=== PATIENT | female | born 1930 | race Caucasian/White ===

== ENCOUNTER 2016-04-16 09:24 | Emergency (ER) | payer MEDICARE, BC ==
[~2016-04-16] VITALS: Ht 170.2 cm; Wt 77.3 kg
[~2016-04-16 09:24] MED LIST: ATIVAN 0.50.5 MG/TAB PO; CORDARONE200 MG/TAB PO; ELIQUIS 5MG PO; LEVOXYL0.05 MG PO; LEXAPRO 10MG10 MG PO; TOPROL XL 25MG25 MG PO; TRICOR145 MG PO; ULTRAM 50MG TAB50 MG PO
[2016-04-16 09:27] VITALS: TEMP 98.6
[2016-04-16 10:49] LABS: BASO % 0.5 % (0.0-2.0); EOS # 0.1 (0.0-0.7); EOS % 1.2 % (0-4.0); GRAN # 2.5 (1.4-6.5); GRAN % 60.7 % (42.2-75.2); HEMATOCRIT 32.5 % (37.0-47.0); HEMOGLOBIN 10.9 g/dl (12.5-16.0); LYMPH # 0.7 (1.2-3.4); LYMPH % 17.6 % (20.0-51.0); MEAN CELL VOLUME 90 fl (80.0-100.0); MEAN CORPUSCULAR HEMOGLOBIN 30 pg (27.0-31.0); MEAN CORPUSCULAR HGB CONC 34 g/dl (33.0-37.0); MEAN PLATELET VOLUME 8.7 fl (7.4-10.4); MONO # 0.8 (0.1-0.6); PLATELET COUNT 230 K/mm3 (130-400); REDCELL DISTRIBUTION WIDTH-CV 13.3 % (11.5-14.5); WHITE BLOOD COUNT 4.2 K/mm3 (4.8-10.8)
[2016-04-16 11:11] LABS: ADJUSTED CALCIUM 8.9 mg/dL (8.4-10.2); ALANINE AMINOTRANSFERASE 76 U/L (9-52); ALBUMIN 3.8 gm/dL (3.5-5.0); ALKALINE PHOSPHATASE 39 U/L (50-136); ANION GAP 8 mmol/L (7-16); BILIRUBIN,TOTAL 0.5 mg/dL (0.0-1.0); BLOOD UREA NITROGEN 12 mg/dL (7-17); CALCIUM 8.7 mg/dL (8.4-10.2); CARBON DIOXIDE 28 mmol/L (22-30); CHLORIDE 95 mmol/L (98-107); CREATININE, serum 0.91 mg/dL (0.52-1.25); GLUCOSE 98 mg/dL (74-106); POTASSIUM 4.3 mmol/L (3.4-5.0); SODIUM 131 mmol/L (137-145); TOTAL PROTEIN 6.3 gm/dL (6.4-8.2)
[2016-04-16 11:23] LABS: B-TYPE NATRIURETIC PEPTIDE 472 pg/mL (0-450); TROPONIN-I < 0.012 ng/mL (0.000-0.034)
[2016-04-16 12:03] VITALS: BP 128/64; PULSE 56
== END 2016-04-16 12:09 | disposition home or self-care (01) ==
LOC: COL.ER 09:24
PROVIDERS: Emergency Medicine
DX: J20.9 Acute bronchitis, unspecified (principal); I48.91 Unspecified atrial fibrillation; Z79.01 Long term (current) use of anticoagulants

== ENCOUNTER 2016-08-19 03:31 | Observation (INO) | payer MEDICARE, BC ==
[~2016-08-19] VITALS: Ht 167.6 cm; Wt 62.9 kg
[2016-08-19 04:04] VITALS: BP 149/69; PULSE 58
[2016-08-19 04:17] LABS: BASO # 0.1 (0.0-0.2); BASO % 0.7 % (0.0-2.0); EOS % 0.1 % (0-4.0); GRAN # 6.3 (1.4-6.5); GRAN % 77.9 % (42.2-75.2); LYMPH # 0.9 (1.2-3.4); LYMPH % 11.6 % (20.0-51.0); MEAN CELL VOLUME 89 fl (80.0-100.0); MEAN CORPUSCULAR HGB CONC 33 g/dl (33.0-37.0); MEAN PLATELET VOLUME 8.8 fl (7.4-10.4); MONO # 0.7 (0.1-0.6); MONO % 8.7 % (1.7-9.3); PLATELET COUNT 286 K/mm3 (130-400); REDCELL DISTRIBUTION WIDTH-CV 13.6 % (11.5-14.5); WHITE BLOOD COUNT 8.1 K/mm3 (4.8-10.8)
[2016-08-19 04:21] LABS: HEMATOCRIT 32.1 % (37.0-47.0); HEMOGLOBIN 10.7 g/dl (12.5-16.0); MEAN CORPUSCULAR HEMOGLOBIN 30 pg (27.0-31.0)
[2016-08-19 04:26] LABS: INR 1.4 (0.8-3.0); PROTHROMBIN TIME 15.9 SECONDS (9.7-12.8)
[2016-08-19 04:27] LABS: PH 8 (5-8); SQUAMOUS EPITHELIAL None Seen /hpf; URINE APPEARANCE Clear; URINE BACTERIA Rare /hpf; URINE BILIRUBIN Negative (NEGATIVE); URINE BLOOD Negative (NEGATIVE); URINE COLOR Yellow; URINE GLUCOSE Negative (NEGATIVE); URINE KETONE Negative (NEGATIVE); URINE RBC 0-2 /hpf; URINE UROBILINOGEN Negative (NEGATIVE); URINE WBC 0-2 /hpf
[2016-08-19 04:29] LABS: PARTIAL THROMBOPLASTIN TIME 30.8 SECONDS (26.0-37.0)
[2016-08-19 04:34] LABS: ADJUSTED CALCIUM 9.1 mg/dL (8.4-10.2); ALANINE AMINOTRANSFERASE 41 U/L (9-52); ALBUMIN 3.9 gm/dL (3.5-5.0); ALKALINE PHOSPHATASE 33 U/L (50-136); ANION GAP 9 mmol/L (7-16); BILIRUBIN,TOTAL 0.5 mg/dL (0.0-1.0); BLOOD UREA NITROGEN 14 mg/dL (7-17); CARBON DIOXIDE 24 mmol/L (22-30); CHLORIDE 98 mmol/L (98-107); CREATININE, serum 0.86 mg/dL (0.52-1.25); GLUCOSE 116 mg/dL (74-106); LIPASE 96 U/L (23-300); SODIUM 131 mmol/L (137-145); TOTAL PROTEIN 6.5 gm/dL (6.4-8.2)
[2016-08-19 04:46] LABS: TROPONIN-I < 0.012 ng/mL (0.000-0.034)
[2016-08-19 11:33] VITALS: BP 159/76; PULSE 59; TEMP 98
[2016-08-19 15:17] VITALS: BP 145/72; PULSE 65; TEMP 97.5
[2016-08-19 17:07] LABS: C-REACTIVE PROTEIN < 0.5 mg/dL (0.0-0.9)
[2016-08-19 20:03] VITALS: BP 116/47; PULSE 61; TEMP 98.1
[2016-08-20 00:12] VITALS: BP 118/50; PULSE 55; TEMP 98.1
[2016-08-20 04:54] VITALS: BP 129/58; PULSE 56; TEMP 98
[2016-08-20 08:16] VITALS: BP 136/61; PULSE 57; TEMP 98.5
[2016-08-20 09:23] LABS: BASO # 0.1 (0.0-0.2); BASO % 0.7 % (0.0-2.0); EOS # 0.1 (0.0-0.7); GRAN # 5.1 (1.4-6.5); GRAN % 76.5 % (42.2-75.2); LYMPH # 0.9 (1.2-3.4); LYMPH % 13.5 % (20.0-51.0); MEAN CELL VOLUME 92 fl (80.0-100.0); MEAN CORPUSCULAR HGB CONC 32 g/dl (33.0-37.0); MONO # 0.5 (0.1-0.6); MONO % 7.3 % (1.7-9.3); PLATELET COUNT 323 K/mm3 (130-400); RED BLOOD COUNT 3.86 M/mm3 (4.10-5.30); REDCELL DISTRIBUTION WIDTH-CV 14.2 % (11.5-14.5); WHITE BLOOD COUNT 6.7 K/mm3 (4.8-10.8)
[2016-08-20 09:25] LABS: HEMATOCRIT 35.5 % (37.0-47.0); HEMOGLOBIN 11.4 g/dl (12.5-16.0); MEAN CORPUSCULAR HEMOGLOBIN 30 pg (27.0-31.0)
[2016-08-20 09:32] LABS: CREATININE, serum 0.75 mg/dL (0.52-1.25); POTASSIUM 3.5 mmol/L (3.4-5.0)
[2016-08-20 12:00] VITALS: BP 138/55; PULSE 61
[2016-08-20 15:01] VITALS: BP 140/52; PULSE 57; TEMP 97.9
[2016-08-20 20:43] VITALS: BP 139/63; PULSE 64; TEMP 97.5
[2016-08-21 04:02] VITALS: BP 156/59; PULSE 70; TEMP 98.9
[2016-08-21 08:24] VITALS: BP 162/63; PULSE 61; TEMP 98.4
[2016-08-21] MEDS ORDERED: ANTIVERT 12.512.5 MG PO ×2 (11:33→15:41)
[2016-08-21 12:34] VITALS: BP 145/59; PULSE 63; TEMP 97.7
[2016-08-23 13:57] LABS: .ANTICARDIOLIPIN IGG <9.4 GPL (())
[2016-08-23 14:00] LABS: .ANTICARDIOLIPIN IGM <9.4 MPL (())
== END 2016-08-21 16:42 | disposition home or self-care (01) ==
LOC: COL.ER 03:31 → MEDICAL 09:04
PROVIDERS: Emergency Medicine; Physician Assistant; Psychiatry & Neurology Neurology
DX: R42 Dizziness and giddiness (principal); E87.1 Hypo-osmolality and hyponatremia; E78.1 Pure hyperglyceridemia; E03.9 Hypothyroidism, unspecified; I48.91 Unspecified atrial fibrillation; Z79.01 Long term (current) use of anticoagulants; R35.0 Frequency of micturition; D69.2 Other nonthrombocytopenic purpura; G47.33 Obstructive sleep apnea (adult) (pediatric)
CPT/HCPCS: 99232-AI; G0378; J2060; J2405; J2550; J7030; J7040

== ENCOUNTER 2016-10-05 05:55 | Inpatient (IN) | payer MEDICARE, BC ==
[~2016-10-05] VITALS: Ht 165.1 cm; Wt 61.9 kg
[~2016-10-05 05:55] MED LIST changes: +ANTIVERT 12.512.5 MG PO
[2016-10-05 06:48] LABS: ADJUSTED CALCIUM 9.3 mg/dL (8.4-10.2); ALBUMIN 4.6 gm/dL (3.5-5.0); BILIRUBIN,TOTAL 0.5 mg/dL (0.0-1.0); CALCIUM 9.8 mg/dL (8.4-10.2); CREATININE, serum 0.86 mg/dL (0.52-1.25); TOTAL PROTEIN 7.3 gm/dL (6.4-8.2)
[2016-10-05 07:01] LABS: TROPONIN-I 0.23 ng/mL (0.000-0.034)
[2016-10-05 07:08] LABS: AMPHETAMINE URINE NEGATIVE; BARBITURATES URINE NEGATIVE; BENZODIAZEPINES URINE NEGATIVE; BUPRENORPHINE URINE NEGATIVE; METHADONE URINE NEGATIVE; OPIATES URINE NEGATIVE; OXYCODONE URINE NEGATIVE; PHENCYCLIDINE URINE NEGATIVE; PROPOXYPHENE URINE NEGATIVE; THC CANNABINOIDS URINE NEGATIVE
[2016-10-05 07:19] LABS: PH 6 (5-8); SQUAMOUS EPITHELIAL 0-2 /hpf; URINE APPEARANCE Hazy; URINE BACTERIA None Seen /hpf; URINE BILIRUBIN Negative (NEGATIVE); URINE BLOOD Negative (NEGATIVE); URINE COLOR Yellow; URINE GLUCOSE Negative (NEGATIVE); URINE KETONE Negative (NEGATIVE); URINE RBC 0-2 /hpf; URINE UROBILINOGEN Negative (NEGATIVE)
[2016-10-05 07:31] LABS: BASO # 0.1 (0.0-0.2); BASO % 0.6 % (0.0-2.0); GRAN # 9.3 (1.4-6.5); GRAN % 86.7 % (42.2-75.2); LYMPH # 0.6 (1.2-3.4); LYMPH % 5.5 % (20.0-51.0); MEAN CELL VOLUME 89 fl (80.0-100.0); MEAN CORPUSCULAR HGB CONC 33 g/dl (33.0-37.0); MEAN PLATELET VOLUME 8.9 fl (7.4-10.4); MONO # 0.7 (0.1-0.6); MONO % 6.4 % (1.7-9.3); PLATELET COUNT 312 K/mm3 (130-400); RED BLOOD COUNT 3.82 M/mm3 (4.10-5.30); REDCELL DISTRIBUTION WIDTH-CV 13.4 % (11.5-14.5); WHITE BLOOD COUNT 10.7 K/mm3 (4.8-10.8)
[2016-10-05 07:37] LABS: HEMATOCRIT 33.9 % (37.0-47.0); HEMOGLOBIN 11.3 g/dl (12.5-16.0); MEAN CORPUSCULAR HEMOGLOBIN 30 pg (27.0-31.0)
[2016-10-05 09:24] VITALS: BP 149/67; PULSE 75; TEMP 98.7
[2016-10-05 13:54] VITALS: BP 137/57; PULSE 71; TEMP 97.4
[2016-10-05 16:50] VITALS: BP 105/42; PULSE 60; TEMP 98.8
[2016-10-05 19:28] VITALS: BP 125/59; PULSE 65; TEMP 98.5
[2016-10-05 23:08] VITALS: BP 123/56; PULSE 57; TEMP 98.7
[2016-10-06 02:51] VITALS: BP 123/57; PULSE 56; TEMP 98.3
[2016-10-06 07:37] VITALS: BP 124/52; PULSE 53; TEMP 97.8
[2016-10-06 08:25] LABS: BASO # 0.1 (0.0-0.2); EOS # 0.1 (0.0-0.7); EOS % 1.5 % (0-4.0); GRAN # 5.2 (1.4-6.5); GRAN % 70.2 % (42.2-75.2); LYMPH # 1.3 (1.2-3.4); LYMPH % 17.4 % (20.0-51.0); MEAN CELL VOLUME 91 fl (80.0-100.0); MEAN CORPUSCULAR HGB CONC 33 g/dl (33.0-37.0); MEAN PLATELET VOLUME 9.1 fl (7.4-10.4); MONO # 0.7 (0.1-0.6); MONO % 9.1 % (1.7-9.3); PLATELET COUNT 299 K/mm3 (130-400); RED BLOOD COUNT 3.61 M/mm3 (4.10-5.30); REDCELL DISTRIBUTION WIDTH-CV 13.5 % (11.5-14.5); WHITE BLOOD COUNT 7.4 K/mm3 (4.8-10.8)
[2016-10-06 08:34] LABS: HEMATOCRIT 32.8 % (37.0-47.0); HEMOGLOBIN 10.9 g/dl (12.5-16.0); MEAN CORPUSCULAR HEMOGLOBIN 30 pg (27.0-31.0)
[2016-10-06 08:37] LABS: CALCIUM 8.9 mg/dL (8.4-10.2); CREATININE, serum 0.79 mg/dL (0.52-1.25); POTASSIUM 3.7 mmol/L (3.4-5.0)
[2016-10-06 12:51] VITALS: BP 114/49; PULSE 55; TEMP 98.4
[2016-10-06 17:58] VITALS: BP 113/55; PULSE 52; TEMP 98
[2016-10-06 21:25] VITALS: BP 103/46; PULSE 52; TEMP 98.7
[2016-10-07] VITALS (10 sets, daily range): BP systolic 109–141; BP diastolic 47–59; PULSE 50–67; TEMP 97.5–98
[2016-10-07] MEDS ORDERED: CEFTIN 250250 MG/TAB PO (13:30)
[2016-10-07] MEDS ORDERED: CORDARONE200 MG/TAB PO (13:31)
[2016-10-07] MEDS ORDERED: ASPIRIN E.C. 8181 MG PO (13:32)
[2016-10-07] MEDS ORDERED: TOPROL XL 25MG25 MG PO (13:32)
== END 2016-10-07 15:30 | disposition home or self-care (01) | DRG 885 ==
LOC: COL.ER 05:55 → MEDICAL 07:52
PROVIDERS: Emergency Medicine; Nurse Practitioner Family
DX: F22 Delusional disorders (principal); I21.4 Non-ST elevation (NSTEMI) myocardial infarction; F05 Delirium due to known physiological condition; N39.0 Urinary tract infection, site not specified; E44.0 Moderate protein-calorie malnutrition; I48.0 Paroxysmal atrial fibrillation; G60.9 Hereditary and idiopathic neuropathy, unspecified; Z79.01 Long term (current) use of anticoagulants; B96.20 Unspecified Escherichia coli [E. coli] as the cause of diseases classified elsewhere; I10 Essential (primary) hypertension
CPT/HCPCS: 90791-AI; 99223-AI; 99232-AI; 99239; A9502; J0696; J2785

== ENCOUNTER → 2016-10-11 | Outpatient (CLI) | payer MEDICARE, BC ==
[~2016-10-11] MED LIST changes: +ASPIRIN E.C. 8181 MG PO; +CEFTIN 250250 MG/TAB PO
== END ==
LOC: MC.RAD 10:51
DX: Z12.31 Encounter for screening mammogram for malignant neoplasm of breast (principal)

== ENCOUNTER → 2016-10-14 | Outpatient (CLI) | payer MEDICARE, BC ==
[~2016-10-14] VITALS: Ht 165.1 cm; Wt 65.0 kg
[2016-10-14 14:48] VITALS: BP 125/64; PULSE 54; TEMP 97.1
== END ==
LOC: EUO 13:00
DX: N39.0 Urinary tract infection, site not specified (principal); J84.10 Pulmonary fibrosis, unspecified; Z95.828 Presence of other vascular implants and grafts
CPT/HCPCS: C1751; J0692; J1644

== ENCOUNTER → 2016-11-11 | Outpatient (REF) | LOC: ZAIV 11-07 06:10 | DX: Z02.89 Encounter for other administrative examinations (principal) ==

== ENCOUNTER → 2017-10-24 | Outpatient (CLI) | payer MEDICARE, BC | LOC: COL.RAD 14:50 | DX: N26.1 Atrophy of kidney (terminal) (principal); N39.0 Urinary tract infection, site not specified ==

== ENCOUNTER → 2017-10-31 | Outpatient (CLI) | payer MEDICARE, BC | LOC: MC.RAD 10:47 | DX: Z12.31 Encounter for screening mammogram for malignant neoplasm of breast (principal) ==

== ENCOUNTER 2018-08-15 06:13 | Inpatient (IN) | payer MEDICARE, BC ==
[~2018-08-15] VITALS: Ht 165.1 cm; Wt 79.5 kg
[2018-08-15 06:46] LABS: HEMOGLOBIN 10.5 g/dl (12.5-16.0); MEAN CELL VOLUME 90 fl (80.0-100.0); MEAN CORPUSCULAR HEMOGLOBIN 30 pg (27.0-31.0); MEAN CORPUSCULAR HGB CONC 33 g/dl (33.0-37.0); MEAN PLATELET VOLUME 9.1 fl (7.4-10.4); PLATELET COUNT 296 K/mm3 (130-400); RED BLOOD COUNT 3.52 M/mm3 (4.10-5.30); REDCELL DISTRIBUTION WIDTH-CV 13.8 % (11.5-14.5)
[2018-08-15 06:47] LABS: COLLECTION METHOD CLEAN CATCH
[2018-08-15 06:47] LABS: HEMATOCRIT 31.5 % (37.0-47.0); INR 1.9 (0.8-3.0); PROTHROMBIN TIME 22.5 SECONDS (9.7-12.8)
[2018-08-15 06:53] LABS: ALANINE AMINOTRANSFERASE 31 U/L (9-52); ALBUMIN 3.8 gm/dL (3.5-5.0); ALKALINE PHOSPHATASE 54 U/L (50-136); ANION GAP 12 mmol/L (7-16); AST,SGOT 47 U/L (15-37); BILIRUBIN,TOTAL 0.5 mg/dL (0.0-1.0); BLOOD UREA NITROGEN 20 mg/dL (7-17); CALCIUM 8.6 mg/dL (8.4-10.2); CARBON DIOXIDE 22 mmol/L (22-30); CHLORIDE 98 mmol/L (98-107); CREATININE, serum 0.87 (0.52-1.25); GLUCOSE 112 mg/dL (74-106); POTASSIUM 3.8 mmol/L (3.4-5.0); SODIUM 132 mmol/L (137-145); TOTAL PROTEIN 7.1 gm/dL (6.4-8.2)
[2018-08-15 06:55] LABS: PH 7 (5-8); SQUAMOUS EPITHELIAL 0-2 /hpf; URINE APPEARANCE Clear; URINE BACTERIA Rare /hpf; URINE BILIRUBIN Negative (NEGATIVE); URINE BLOOD Negative (NEGATIVE); URINE COLOR Yellow; URINE GLUCOSE Negative (NEGATIVE); URINE KETONE Trace (NEGATIVE); URINE LEUKOCYTE ESTERASE Negative (NEGATIVE); URINE NITRATE Positive (NEGATIVE); URINE PROTEIN(semi-quant) Negative (NEGATIVE); URINE RBC 0-2 /hpf; URINE UROBILINOGEN Negative (NEGATIVE)
[2018-08-15 07:10] LABS: TROPONIN-I < 0.012 ng/mL (0.000-0.035)
[2018-08-15 07:14] LABS: BAND 3 % (0-10); EOSINOPHIL 2 % (0-4); LYMPHOCYTE 12 % (20.0-51.0); NEUTROPHILS 72 % (42.0-75.2)
[2018-08-15 07:16] LABS: PLATELET ESTIMATE NORMAL (NORMAL)
[2018-08-15] MEDS ORDERED: SYNTHROID0.1 MG/TAB PO (09:28)
--- NOTE | 2018-08-15 10:30 | NUR ---
Pt on floor from ED. Pt was wanting to stay on bedpan, put an external catheter on. Pt in new gown, oriented to room. C/O pain to her abdomen 09/26. Will follow up with doctor. Denies any other needs. Aid in room.
[2018-08-15 10:45] VITALS: BP 148/58; PULSE 72; TEMP 98.5
--- NOTE | 2018-08-15 11:40 | NUR ---
Completed assessment. Pt is alert and orientedX4, does have random speech occasionally, with random thoughts. C/O of abdomen pain from her UTI. Some bilateral lower extremity pitting edema, +2. Pt usually utilizes a walker at home. Denies being able to get out of bed. Clear yellow urine in suction container. Pt c/o some shortness of breath, breathing even and unlabored, breath sounds clear. Med rec and allergies gone over. Denies any needs. Call light in reach.
--- NOTE | 2018-08-15 12:45 | NUR ---
Plan: TO return home with homehealth care or SNF-[facility]. Assess: RICK met with patient and Son Ankit Wilkerson [phone] in room about plan of care. Patient reports that she has had caregivers in the past for home health and her is at [facility]. Patient verbalize choice. No form signed yet. Patient reports that she uses a walker for mobility and is not opposed to the skilled care. Patient indicated that she no longer drive. PCP is reported as Dr. Junior Rubio, RX obtained from [facility]. Patient reports that she was to have a DR-nicolasa on August [address] Pa for uriology due to UTI being unresolved. DPOA is Karlos Preciado. Action: SW will follow patient's care to facilitate services for DC. RICK educated on the SNF's in the area. Patient reports [facility] is the only SNF she is willing to go to. SW faxed referral preliminarily. Patient resides alone and has a son that is local. Awaiting, PT/OT and PA recommendations.
[2018-08-15 15:36] VITALS: BP 136/50; PULSE 674; TEMP 99.8
--- NOTE | 2018-08-15 16:18 | NUR ---
Pt lying in bed, breathing even and unlabored. Denies any shortness of breath currently. C/O pain to abdomen 05/27, when pressure is applied. Will contiue to monitor. Call light in reach.
--- NOTE | 2018-08-15 18:34 | NUR ---
Pt in bed, denies any shortness of breath or pain at this time. Cannister emptied and external catheter reapplied. Denies any other needs at this time, ordering dinner now.
--- NOTE | 2018-08-15 18:42 | NUR ---
pt lying in bed, eyes closed, breathing even and unlabored. Report given to Nancy HAYNES.
[2018-08-15 19:13] VITALS: BP 134/53; PULSE 68; TEMP 98.8
--- NOTE | 2018-08-15 19:38 | NUR ---
Pt resting with HOB elevated. Family at bedside. No distress noted. Pt denies pain. Respirations even and unlabored. Lungs clear, dminished in bases. BS+. Abdomen soft, nontender. Pt voiding clear, mack urine via external catheter. Catheter placement confirmed. Pt A&O without neuro deficits. Pt denies needs. Will continue to monitor.
--- NOTE | 2018-08-15 23:00 | NUR ---
Pt sleeping. No distress noted. Will continue to monitor.
[2018-08-16 00:38] VITALS: BP 140/52; PULSE 60; TEMP 98.4
[2018-08-16 04:52] VITALS: BP 135/55; PULSE 59; TEMP 97.9
--- NOTE | 2018-08-16 06:10 | NUR ---
Pt sleeping this AM. Reports she sleep better last night. External catheter exchanged and pericare preformed. Pt denies needs.
[2018-08-16 07:15] LABS: BASO # 0.1 (0.0-0.2); BASO % 0.6 % (0.0-2.0); EOS # 0.1 (0.0-0.7); EOS % 1.8 % (0-4.0); GRAN # 5.6 (1.4-6.5); GRAN % 72.5 % (42.2-75.2); HEMOGLOBIN 10.8 g/dl (12.5-16.0); LYMPH % 12.4 % (20.0-51.0); MEAN CELL VOLUME 90 fl (80.0-100.0); MEAN CORPUSCULAR HEMOGLOBIN 29 pg (27.0-31.0); MEAN CORPUSCULAR HGB CONC 32 g/dl (33.0-37.0); MEAN PLATELET VOLUME 8.9 fl (7.4-10.4); MONO # 0.9 (0.1-0.6); MONO % 11.1 % (1.7-9.3); PLATELET COUNT 300 K/mm3 (130-400); RED BLOOD COUNT 3.72 M/mm3 (4.10-5.30); REDCELL DISTRIBUTION WIDTH-CV 13.9 % (11.5-14.5)
[2018-08-16 07:21] LABS: HEMATOCRIT 33.5 % (37.0-47.0)
[2018-08-16 07:30] LABS: CALCIUM 8.4 mg/dL (8.4-10.2); CREATININE, serum 0.71 (0.52-1.25); MAGNESIUM 2.1 mg/dL (1.6-2.3); POTASSIUM 3.7 mmol/L (3.4-5.0)
[2018-08-16 07:56] LABS: TSH w REFLEX 4.98 uIU/mL (0.465-4.680)
[2018-08-16 08:17] VITALS: BP 141/55; PULSE 60; TEMP 98.2
--- NOTE | 2018-08-16 09:45 | NUR ---
Pt assessment complete. Pt is A/O x3. Her breathing is even and unlabored on RA. Pt denies SOB. No pain at this time, pain to touch noticed to BLE. Pt states she was supposed to start Lasix. External catheter in place to constant suction. Encouraged patient to ambulate with walker today to keep up strength, pt agreed. No needs at this time. Call light within reach. Will continue to monitor.
--- NOTE | 2018-08-16 11:00 | NUR ---
Spoke with patient to confirm plan. Patient reports that she plans to return to home with home health care. SW will fax DC order and BONNY for patient with current HHS.
[2018-08-16 12:26] VITALS: BP 125/47; PULSE 59; TEMP 97.9
--- NOTE | 2018-08-16 13:37 | NUR ---
Met with Mrs Wilkerson about home health care. Caregivers reports that they do not have her as a patient. Mrs. Wilkerson states that she can not remember what the company it is and asked me to call Baldemar at [facility] who set the home health care up. SW called and left message. No answer, SW called son to verify and son stated he does not know either and will have to wait for [facility]. Please send BONNY to the home healthcare as soon as we know who it is.
[2018-08-16 16:08] VITALS: BP 117/46; PULSE 60; TEMP 98.1
--- NOTE | 2018-08-16 18:50 | NUR ---
Pt had uneventful day. She denied any pain or concerns. External catheter discontinued, pt up to the cammode to urinate. Pt sitting up in chair at this time. Call light within reach. Will continue to monitor.
[2018-08-16 19:43] VITALS: BP 136/79; PULSE 60; TEMP 98.3
--- NOTE | 2018-08-16 19:51 | NUR ---
PT WAS IN RECLINER BUT NOW IN BED WITH HOB ELEVATED TO 45 DEGREE ANGLE. DENIES PAIN OR DISCOMFORT AND NO NEEDS AT THIS TIME. CALL LIGHT WITHIN REACH.
[2018-08-17] VITALS (7 sets, daily range): BP systolic 133–143; BP diastolic 49–70; PULSE 54–65; TEMP 97.6–98.7
--- NOTE | 2018-08-17 00:22 | NUR ---
PT SLEEPING/RESTING AT THIS TIME. PT WANTED EXTERNAL CATHETER FOR BED. PT WAS EXPLAINED THAT THE ORDER WAS DISCONTINUED AND IF SHE NEEDS TO GET UP TO THE BATHROOM, WE WILL ASSIST HER. NO S/S OF PAIN OR DISCOMFORT NOTED CALL LIGHT WITHIN REACH.
[2018-08-17 06:00] LABS: HEMOGLOBIN 10.4 g/dl (12.5-16.0); MEAN CELL VOLUME 90 fl (80.0-100.0); MEAN CORPUSCULAR HEMOGLOBIN 29 pg (27.0-31.0); MEAN CORPUSCULAR HGB CONC 32 g/dl (33.0-37.0); MEAN PLATELET VOLUME 8.9 fl (7.4-10.4); PLATELET COUNT 311 K/mm3 (130-400); RED BLOOD COUNT 3.59 M/mm3 (4.10-5.30); REDCELL DISTRIBUTION WIDTH-CV 13.8 % (11.5-14.5)
[2018-08-17 06:06] LABS: CALCIUM 8.5 mg/dL (8.4-10.2); CREATININE, serum 0.71 (0.52-1.25); POTASSIUM 3.9 mmol/L (3.4-5.0)
[2018-08-17 06:10] LABS: HEMATOCRIT 32.2 % (37.0-47.0)
[2018-08-17 07:15] LABS: BASOPHIL 2 % (0-2); LYMPHOCYTE 17 % (20.0-51.0); NEUTROPHILS 74 % (42.0-75.2); PLATELET ESTIMATE NORMAL (NORMAL)
--- NOTE | 2018-08-17 08:23 | NUR ---
Patient in room in bed at start of shift. A&Ox3. Has complaints of pain/tenderness in bilateral lower extremities when touched. Assessment complete. Morning medications given. No further needs expressed at this time. Will continue to monitor.
--- NOTE | 2018-08-17 11:47 | NUR ---
First visit from the medical administrative. No needs right now.
--- NOTE | 2018-08-17 17:40 | NUR ---
Home health is being recommended for the patient. RICK provided a Medicare.gov list of agencies that serve the [facility]. The pt would like to contact her PCP to ask about a previous agency she used. RICK will continue follow.
--- NOTE | 2018-08-17 18:03 | NUR ---
Patient had uneventful shift. Sleeping throughout and awake for meals. A&Ox3. VSS. No further needs identified. Will continue to monitor.
--- NOTE | 2018-08-17 20:49 | NUR ---
PT IN BED WITH HOB AT 45 DEGREE ANGLE. PT DOES NOT FOLLOW DIRECTIONS WELL. ASKED PT TO BREATH IN AND OUT AND PT HELD HER BREATH. ALSO, TO POINT TOES UPWARD, BUT SHE LIFTED LEGS AND THEN BENT THEM. PT DENIES PAIN OR DISCOMFORT ONLY WHEN YOU TOUCH LLE. PT ADVISED OF NEW MEDICATION GIVEN. PT HAS NO FURTHER NEEDS CALL LIGHT WITHIN REACH.
--- NOTE | 2018-08-18 01:47 | NUR ---
UNEVENTFUL NIGHT, PT SLEEPING/RESTING WITH NO S/S OF PAIN OR DISCOMFORT NOTED.
[2018-08-18 04:00] VITALS: BP 141/51; PULSE 58; TEMP 97.7
--- NOTE | 2018-08-18 05:44 | NUR ---
UNEVENTFUL NIGHT. PT ASSISTED TO BATHROOM AND BACK A FEW TIMES DURING THE NIGHT, BUT GAIT STEADY USING WALKER FOR AMBULATION. NO FURTHER NEEDS CALL LIGHT WITHIN REACH AND BED ALARM ON.
[2018-08-18 06:05] LABS: HEMOGLOBIN 11.4 g/dl (12.5-16.0); MEAN CELL VOLUME 90 fl (80.0-100.0); MEAN CORPUSCULAR HEMOGLOBIN 30 pg (27.0-31.0); MEAN CORPUSCULAR HGB CONC 33 g/dl (33.0-37.0); PLATELET COUNT 344 K/mm3 (130-400); RED BLOOD COUNT 3.83 M/mm3 (4.10-5.30); REDCELL DISTRIBUTION WIDTH-CV 14.1 % (11.5-14.5)
[2018-08-18 06:20] LABS: CALCIUM 8.9 mg/dL (8.4-10.2); CREATININE, serum 0.72 (0.52-1.25); HEMATOCRIT 34.4 % (37.0-47.0); POTASSIUM 3.8 mmol/L (3.4-5.0)
[2018-08-18 06:51] VITALS: BP 135/50; PULSE 65; TEMP 98.5
[2018-08-18 07:23] LABS: EOSINOPHIL 1 % (0-4); LYMPHOCYTE 6 % (20.0-51.0); NEUTROPHILS 83 % (42.0-75.2); PLATELET ESTIMATE NORMAL (NORMAL)
--- NOTE | 2018-08-18 08:43 | NUR ---
Patient sitting in bed at start of shift. A&Ox3. Denies pain. Morning medication given. No other needs expressed at this time. Will continue to monitor.
[2018-08-18] MEDS ORDERED: CEFTIN500 MG PO (08:54)
[2018-08-18] MEDS ORDERED: NEURONTIN100 MG/CAP PO (08:55)
--- NOTE | 2018-08-18 09:11 | NUR ---
RICK met with the patient to follow up on home health preference. The patient reports that she had [facility] in the past and she chose [facility] again. RICK then contacted and faxed a referral to Payton at [facility]. SW awaiting their screen.
--- NOTE | 2018-08-18 09:54 | NUR ---
Pt has been up to bathroom with diarrhea several times this am. [place] mid level updated and order for CDiff placed. Contact precautions put in place.
--- NOTE | 2018-08-18 10:09 | NUR ---
Discharge orders received. Education and follow-up appointments discussed along with new medications. Patient verbalized understanding.
--- NOTE | 2018-08-18 11:24 | NUR ---
Patient departs facility escorted by MAPLE SUGAR MAKER.
--- NOTE | 2018-08-18 13:56 | NUR ---
Payton, at [facility], reports that they can accept the patient for services. The patient is to discharge back home today, 08/18, with home health services for usp/PT/OT through [facility]. SW presented and explained the IM form to the patient. The patient verbalized understanding, signed, and she was provided a copy. No additional needs at this time.
== END 2018-08-18 11:26 | disposition home or self-care (01) | DRG 70 ==
LOC: COL.ER 06:13 → MEDICAL 09:14
PROVIDERS: Emergency Medicine; Physician Assistant; ADMIT Hospitalist
DX: G93.41 Metabolic encephalopathy (principal); J18.9 Pneumonia, unspecified organism; N39.0 Urinary tract infection, site not specified; Z87.440 Personal history of urinary (tract) infections; I48.91 Unspecified atrial fibrillation; Z79.01 Long term (current) use of anticoagulants; E78.1 Pure hyperglyceridemia; E03.9 Hypothyroidism, unspecified; F03.90 Unspecified dementia, unspecified severity, without behavioral disturbance, psychotic disturbance, mood disturbance, and anxiety; H91.8X9 Other specified hearing loss, unspecified ear; R42 Dizziness and giddiness; G47.33 Obstructive sleep apnea (adult) (pediatric); F41.9 Anxiety disorder, unspecified; Z91.81 History of falling; G60.8 Other hereditary and idiopathic neuropathies; M51.36 Other intervertebral disc degeneration, lumbar region; Z79.82 Long term (current) use of aspirin; Z79.890 Hormone replacement therapy; Z88.1 Allergy status to other antibiotic agents; Z88.2 Allergy status to sulfonamides; Z88.8 Allergy status to other drugs, medicaments and biological substances; M79.605 Pain in left leg; M79.604 Pain in right leg; I83.93 Asymptomatic varicose veins of bilateral lower extremities; Z66 Do not resuscitate; R53.81 Other malaise
CPT/HCPCS: OP; 99222-AI; 99232-AI; 99239; A4216; J0696; Q9967

== ENCOUNTER 2018-08-22 14:28 | Emergency (ER) | payer MEDICARE, BC ==
[~2018-08-22 14:28] MED LIST changes: +CEFTIN500 MG PO; +NEURONTIN100 MG/CAP PO; +SYNTHROID0.1 MG/TAB PO
[2018-08-22 14:36] VITALS: TEMP 97.5
[2018-08-22] MEDS ORDERED: NORCO 325 MG-51 TAB PO (18:02)
[2018-08-22 18:05] VITALS: PULSE 62
[2018-08-22 18:10] VITALS: BP 154/67
== END 2018-08-22 18:10 ==
LOC: COL.ER 14:28
DX: S32.049A Unspecified fracture of fourth lumbar vertebra, initial encounter for closed fracture (principal); M54.16 Radiculopathy, lumbar region; I48.91 Unspecified atrial fibrillation; E03.9 Hypothyroidism, unspecified; E78.5 Hyperlipidemia, unspecified; G62.9 Polyneuropathy, unspecified; F41.9 Anxiety disorder, unspecified; G47.30 Sleep apnea, unspecified; W18.30XA Fall on same level, unspecified, initial encounter

== ENCOUNTER → 2018-09-09 | Outpatient (CLI) | payer MEDICARE, BC ==
[~2018-09-09] MED LIST changes: +AMITIZA 8MCG8 MCG PO; +DULCOLAX S10 MG/SUPP RC; +FLEET MINE1 BOT/133 RC; +LASIX 20MG TABL20 MG PO; +MAGCITRATE PO; +MILK OF MA400 MG/52; +NORCO 325 MG-51 TAB PO; +PROBIOTIC FORMU1 CAP PO; +SENOKOT8.6 MG PO; +TYLENOL 500MG500 MG PO; +ULTRAM ER100 MG PO
== END ==
LOC: COL.RAD 14:04
DX: M48.56XA Collapsed vertebra, not elsewhere classified, lumbar region, initial encounter for fracture (principal)

== ENCOUNTER 2018-09-11 12:57 | Observation (INO) | payer MEDICARE, BC ==
[~2018-09-11] VITALS: Ht 167.6 cm; Wt 80.9 kg
[~2018-09-11 12:57] MED LIST changes: -AMITIZA 8MCG8 MCG PO; -DULCOLAX S10 MG/SUPP RC; -FLEET MINE1 BOT/133 RC; -LASIX 20MG TABL20 MG PO; -MAGCITRATE PO; -MILK OF MA400 MG/52; -PROBIOTIC FORMU1 CAP PO; -SENOKOT8.6 MG PO; -TYLENOL 500MG500 MG PO; -ULTRAM ER100 MG PO
[2018-09-11 13:44] LABS: BASO % 0.3 % (0.0-2.0); EOS % 0.2 % (0-4.0); GRAN # 10.9 (1.4-6.5); GRAN % 81.9 % (42.2-75.2); LYMPH # 1.3 (1.2-3.4); LYMPH % 9.9 % (20.0-51.0); MEAN CELL VOLUME 89 fl (80.0-100.0); MEAN CORPUSCULAR HEMOGLOBIN 29 pg (27.0-31.0); MEAN CORPUSCULAR HGB CONC 33 g/dl (33.0-37.0); MEAN PLATELET VOLUME 8.8 fl (7.4-10.4); MONO # 0.9 (0.1-0.6); MONO % 6.9 % (1.7-9.3); PLATELET COUNT 299 K/mm3 (130-400); RED BLOOD COUNT 4.08 M/mm3 (4.10-5.30); REDCELL DISTRIBUTION WIDTH-CV 14.6 % (11.5-14.5)
[2018-09-11 13:45] LABS: HEMATOCRIT 36.3 % (37.0-47.0)
[2018-09-11 13:57] LABS: ALBUMIN 3.8 gm/dL (3.5-5.0); BILIRUBIN,TOTAL 0.6 mg/dL (0.0-1.0); CALCIUM 8.6 mg/dL (8.4-10.2); CREATININE, serum 0.82 (0.52-1.25); POTASSIUM 3.6 mmol/L (3.4-5.0); TOTAL PROTEIN 6.8 gm/dL (6.4-8.2)
[2018-09-11 13:58] LABS: C-REACTIVE PROTEIN 0.5 mg/dL (0.0-0.9)
[2018-09-11 14:42] LABS: COLLECTION METHOD CLEAN CATCH
[2018-09-11 14:50] LABS: MUCOUS Present /lpf; PH 5 (5-8); URINE APPEARANCE Clear; URINE BACTERIA Rare /hpf; URINE BILIRUBIN Negative (NEGATIVE); URINE BLOOD Negative (NEGATIVE); URINE COLOR Amber; URINE GLUCOSE Negative (NEGATIVE); URINE KETONE Trace (NEGATIVE); URINE LEUKOCYTE ESTERASE Negative (NEGATIVE); URINE NITRATE Negative (NEGATIVE); URINE PROTEIN(semi-quant) Negative (NEGATIVE); URINE UROBILINOGEN >=4.0 mg/dL (NEGATIVE)
[2018-09-11] MEDS ORDERED: FLEET MINE1 BOT/133 RC ×2 (16:12→22:50)
[2018-09-11] MEDS ORDERED: LASIX 20MG TABL20 MG PO (16:13)
[2018-09-11] MEDS ORDERED: PROBIOTIC FORMU1 CAP PO ×2 (16:14→22:53)
[2018-09-11] MEDS ORDERED: SYNTHROID0.1 MG/TAB PO (16:15)
[2018-09-11] MEDS ORDERED: AMITIZA 8MCG8 MCG PO (16:17)
[2018-09-11] MEDS ORDERED: SENOKOT8.6 MG PO (16:19)
[2018-09-11] MEDS ORDERED: ULTRAM ER100 MG PO (16:21)
[2018-09-11] MEDS ORDERED: TYLENOL 500MG500 MG PO (16:22)
[2018-09-11] MEDS ORDERED: MAGCITRATE PO (16:23)
[2018-09-11 17:12] VITALS: BP 152/64; PULSE 60; TEMP 97.6
--- NOTE | 2018-09-11 19:27 | NUR ---
Pt up to room 306 about 1630. Pt admission and med rec completed. Pt is A&O, on room air. Denies chest pain, dizziness. States she has some nausea but no vomiting here. Per pt she vomited some of her morning meds this morning. Pt c/o abdominal pain on left side, tender to touch. Tolerating some clear liquids. Pt stated she had not had a BM in weeks, per pt and nurse giving report she had a BM right before she came up to floor. Per pt her stool was mostly solid, "average". BLE pain/tenderness to touch. LR in LWR started at 125 ml/hr. No other needs at this time. Call light within reach. Report given to IVY Pak.
[2018-09-11 20:32] VITALS: BP 150/63; PULSE 63; TEMP 98.6
--- NOTE | 2018-09-11 20:45 | NUR ---
PT RESTING IN BED A+OX4. REPORTS PAIN 8/10 IN ABD- PRN PAIN MEDS GIVEN. REPORTS DRINKING ANY LIQUID WILL CAUSE N/V- PT NAUSEATED AT THIS TIME- PRN ZOFRAN GIVEN. LUNGS CLEAR X4. BOWEL SOUNDS HEARD X4 QUAD. PT HAS HAD ONE BM SINCE BEGINNING OF SHIFT. 1+ EDEMA NOTED IN BILAT LEGS- PT REPORTS TENDERNESS IN LEGS. HEART- NORMAL RRR. NO NEEDS AT THIS TIME. CALL LIGHT IN REACH. BED ALRM ON. FALL PRECATIONS IN PLACE.
--- NOTE | 2018-09-11 22:30 | NUR ---
PT HAS NAUSEA- PRN ZOFRAN GIVEN- REPORTS MINIMAL RELIEF. PT ASLEEP AT 2330. NO NEEDS AT THIS TIME, CALL LIGHT IN REACH. BED ARLM ON
[2018-09-11] MEDS ORDERED: DULCOLAX S10 MG/SUPP RC (22:57)
[2018-09-11] MEDS ORDERED: MILK OF MA400 MG/52 (22:58)
[2018-09-11 23:38] VITALS: TEMP 98.3
[2018-09-11 23:41] VITALS: BP 105/69; PULSE 92; TEMP 98.3
[2018-09-12 05:32] VITALS: BP 141/63; PULSE 72; TEMP 98
--- NOTE | 2018-09-12 05:37 | NUR ---
PT HAD AN UNEVENTFUL NIGHT. REPORTED 8/10 PAIN- PAIN MEDS GIVEN. PT REPORTED N/V WHEN SHE DRINKS FLUIDS- PRN ZOFRAN GIVEN. PT GAIT SLOW AND SOMETIMES UNSTEADY- GATEBELT AND WALKER USED. FALL PRECATIONS IN PLACE. BED ALRM ON. BOWEL SOUNDS HEARD THROUGHOUT X4 QUAD. PT HAD 3 BM DURING NIGHT. NO NEEDS AT THIS TIME. CALL LIGHT IN REACH
[2018-09-12 07:00] LABS: BASO # 0.1 (0.0-0.2); BASO % 0.3 % (0.0-2.0); EOS % 0.2 % (0-4.0); GRAN # 14.4 (1.4-6.5); GRAN % 83.1 % (42.2-75.2); LYMPH # 1.6 (1.2-3.4); LYMPH % 9.4 % (20.0-51.0); MEAN CELL VOLUME 89 fl (80.0-100.0); MEAN CORPUSCULAR HEMOGLOBIN 30 pg (27.0-31.0); MEAN CORPUSCULAR HGB CONC 33 g/dl (33.0-37.0); MEAN PLATELET VOLUME 9.6 fl (7.4-10.4); PLATELET COUNT 287 K/mm3 (130-400); RED BLOOD COUNT 4.07 M/mm3 (4.10-5.30); REDCELL DISTRIBUTION WIDTH-CV 14.8 % (11.5-14.5)
[2018-09-12 07:03] LABS: CALCIUM 8.3 mg/dL (8.4-10.2); CREATININE, serum 0.67 (0.52-1.25); POTASSIUM 3.8 mmol/L (3.4-5.0)
[2018-09-12 07:06] LABS: HEMATOCRIT 36.3 % (37.0-47.0)
--- NOTE | 2018-09-12 07:07 | NUR ---
REPORT GIVEN TO LIS HAYNES
[2018-09-12 07:38] VITALS: BP 137/57; PULSE 69; TEMP 98.7
--- NOTE | 2018-09-12 09:00 | NUR ---
Patient alert and oriented, answers questions appropriately. See assessment. Abdomen soft, non tender, non distended. Bowel sounds hyperactive x4 quads. +Flatus. +BM. No c/o at this time.
[2018-09-12] MEDS ORDERED: TYLENOL 325MG325 MG PO (10:36)
[2018-09-12] MEDS ORDERED: ULTRAM ER100 MG PO (10:37)
[2018-09-12] MEDS ORDERED: MIRALAX510G PO (11:00)
[2018-09-12 11:32] VITALS: BP 146/53; PULSE 68; TEMP 98.1
--- NOTE | 2018-09-12 11:42 | NUR ---
Plan: To return to [facility]-Skilled. Assess: Patient reports that she is currently in a skilled stay. Patient reports PCP is Dr. Oscar Rubio, obtains RX from [facility]. DPOA is Karlos Preciado. Dme is walker, which she is using temporarily. [facility] will provide transport 2:pm Action: RICK sent DC orders to [facility]. Nothing follows.
[2018-09-12 14:27] VITALS: BP 146/53; PULSE 68; TEMP 98.1
--- NOTE | 2018-09-12 14:38 | NUR ---
Patient discharged to [facility] at 1435 via wheelchair with transporation staff. Report called, paperwork sent.
== END 2018-09-12 14:35 ==
LOC: COL.ER 12:57 → MEDICAL 14:55
PROVIDERS: Family Medicine; Physician Assistant; ADMIT Student in an Organized Health Care Education/Training Program
DX: K56.7 Ileus, unspecified (principal); D72.829 Elevated white blood cell count, unspecified; E87.1 Hypo-osmolality and hyponatremia; I48.91 Unspecified atrial fibrillation; Z79.01 Long term (current) use of anticoagulants; E78.1 Pure hyperglyceridemia; E03.9 Hypothyroidism, unspecified; R54 Age-related physical debility; F32.9 Major depressive disorder, single episode, unspecified; G47.33 Obstructive sleep apnea (adult) (pediatric); E78.5 Hyperlipidemia, unspecified; R42 Dizziness and giddiness; G60.9 Hereditary and idiopathic neuropathy, unspecified; Z90.710 Acquired absence of both cervix and uterus; Z90.49 Acquired absence of other specified parts of digestive tract; Z79.899 Other long term (current) drug therapy; Z79.82 Long term (current) use of aspirin; Z88.0 Allergy status to penicillin
CPT/HCPCS: G0378; J2405; J7030; J7120; Q9967

== ENCOUNTER → 2019-09-24 | Outpatient (CLI) | payer MEDICARE, BC ==
[~2019-09-24] MED LIST changes: +AMITIZA 8MCG8 MCG PO; +DULCOLAX S10 MG/SUPP RC; +FLEET MINE1 BOT/133 RC; +LASIX 20MG TABL20 MG PO; +MAGCITRATE PO; +MILK OF MA400 MG/52; +MIRALAX510G PO; +PROBIOTIC FORMU1 CAP PO; +SENOKOT8.6 MG PO; +TYLENOL 325MG325 MG PO; +TYLENOL 500MG500 MG PO; +ULTRAM ER100 MG PO
== END ==
LOC: MC.RAD 10:57
DX: Z12.31 Encounter for screening mammogram for malignant neoplasm of breast (principal)

== ENCOUNTER 2019-10-09 16:44 | Emergency (ER) | payer MEDICARE, BC ==
[~2019-10-09] VITALS: Ht 167.6 cm; Wt 72.7 kg
[2019-10-09 16:58] VITALS: TEMP 97.8
[2019-10-09 17:21] LABS: HEMOGLOBIN 11.1 g/dl (12.5-16.0); MEAN CELL VOLUME 90 fl (80.0-100.0); MEAN CORPUSCULAR HEMOGLOBIN 29 pg (27.0-31.0); MEAN CORPUSCULAR HGB CONC 33 g/dl (33.0-37.0); MEAN PLATELET VOLUME 8.5 fl (7.4-10.4); PLATELET COUNT 293 K/mm3 (130-400)
[2019-10-09 17:30] LABS: HEMATOCRIT 34.1 % (37.0-47.0)
[2019-10-09 17:49] LABS: ALBUMIN 4.2 gm/dL (3.5-5.0); BILIRUBIN,TOTAL 0.5 mg/dL (0.0-1.0); C-REACTIVE PROTEIN 1.7 mg/dL (0.0-0.9); CALCIUM 8.6 mg/dL (8.4-10.2); CREATININE, serum 0.76 (0.52-1.25); POTASSIUM 3.2 mmol/L (3.4-5.0); TOTAL PROTEIN 7.6 gm/dL (6.4-8.2)
[2019-10-09 18:04] LABS: ANISOCYTOSIS 1+; BAND 3 % (0-10); LYMPHOCYTE 25 % (20.0-51.0); METAMYELOCYTE 3 % (0-0); NEUTROPHILS 64 % (42.0-75.2); PLATELET ESTIMATE NORMAL (NORMAL)
[2019-10-09 18:05] LABS: HYPOCHROMIA 1+
[2019-10-09 18:36] LABS: COLLECTION METHOD CLEAN CATCH
[2019-10-09 18:41] LABS: MUCOUS Present /lpf; PH 6 (5-8); SQUAMOUS EPITHELIAL 0-2 /hpf; URINE APPEARANCE Clear; URINE BACTERIA None Seen /hpf; URINE BILIRUBIN Negative (NEGATIVE); URINE BLOOD 2+ (NEGATIVE); URINE COLOR Yellow; URINE GLUCOSE Negative (NEGATIVE); URINE KETONE Negative (NEGATIVE); URINE LEUKOCYTE ESTERASE Negative (NEGATIVE); URINE NITRATE Negative (NEGATIVE); URINE PROTEIN(semi-quant) Negative (NEGATIVE); URINE UROBILINOGEN Negative (NEGATIVE)
[2019-10-09 19:40] VITALS: BP 156/81; PULSE 64
== END 2019-10-09 19:43 | disposition home or self-care (01) ==
LOC: COL.ER 16:44
PROVIDERS: Family Medicine
DX: K52.9 Noninfective gastroenteritis and colitis, unspecified (principal); I48.91 Unspecified atrial fibrillation; I10 Essential (primary) hypertension; Z79.01 Long term (current) use of anticoagulants; Z79.82 Long term (current) use of aspirin; Z90.49 Acquired absence of other specified parts of digestive tract
CPT/HCPCS: J2405; J7030

== ENCOUNTER 2020-09-26 10:12 | Emergency (ER) | payer MEDICARE, BC ==
[~2020-09-26] VITALS: Ht 167.6 cm; Wt 81.8 kg
[~2020-09-26 10:12] MED LIST changes: +PROBIOTIC-MAJOR PO
[2020-09-26 11:00] VITALS: TEMP 98.6
[2020-09-26 11:55] LABS: BASO # 0.1 (0.0-0.2); BASO % 0.8 % (0.0-2.0); EOS # 0.1 (0.0-0.7); EOS % 0.5 % (0-4.0); GRAN # 8.4 (1.4-6.5); GRAN % 80.2 % (42.2-75.2); HEMOGLOBIN 11.7 g/dl (12.5-16.0); LYMPH % 9.8 % (20.0-51.0); MEAN CELL VOLUME 91 fl (80.0-100.0); MEAN CORPUSCULAR HEMOGLOBIN 31 pg (27.0-31.0); MEAN CORPUSCULAR HGB CONC 33 g/dl (33.0-37.0); MEAN PLATELET VOLUME 8.9 fl (7.4-10.4); MONO # 0.8 (0.1-0.6); MONO % 7.3 % (1.7-9.3); PLATELET COUNT 337 K/mm3 (130-400); RED BLOOD COUNT 3.83 M/mm3 (4.10-5.30); REDCELL DISTRIBUTION WIDTH-CV 13.6 % (11.5-14.5)
[2020-09-26 12:00] LABS: ALBUMIN 4.2 gm/dL (3.5-5.0); BILIRUBIN,TOTAL 0.7 mg/dL (0.0-1.0); CREATININE, serum 0.81 (0.52-1.25); POTASSIUM 3.9 mmol/L (3.4-5.0)
[2020-09-26 12:48] LABS: COLLECTION METHOD CLEAN CATCH
[2020-09-26 12:59] LABS: MUCOUS Present /lpf; PH 6 (5-8); SQUAMOUS EPITHELIAL 0-2 /hpf; URINE APPEARANCE Hazy; URINE BACTERIA Rare /hpf; URINE BILIRUBIN Negative (NEGATIVE); URINE BLOOD 1+ (NEGATIVE); URINE COLOR Yellow; URINE GLUCOSE Negative (NEGATIVE); URINE KETONE Trace (NEGATIVE); URINE LEUKOCYTE ESTERASE 1+ (NEGATIVE); URINE NITRATE Negative (NEGATIVE); URINE PROTEIN(semi-quant) Negative (NEGATIVE); URINE RBC 0-2 /hpf
[2020-09-26] MEDS ORDERED: LEVAQUIN 2250 MG/TAB PO (14:05)
[2020-09-26 14:43] VITALS: BP 162/83; PULSE 64
== END 2020-09-26 14:43 | disposition home or self-care (01) ==
LOC: COL.ER 10:12
PROVIDERS: Physician Assistant
DX: N39.0 Urinary tract infection, site not specified (principal); E87.1 Hypo-osmolality and hyponatremia; D64.9 Anemia, unspecified; I48.91 Unspecified atrial fibrillation; E78.1 Pure hyperglyceridemia; F32.9 Major depressive disorder, single episode, unspecified; F03.90 Unspecified dementia, unspecified severity, without behavioral disturbance, psychotic disturbance, mood disturbance, and anxiety; E03.9 Hypothyroidism, unspecified; Z79.01 Long term (current) use of anticoagulants; Z20.822 Contact with and (suspected) exposure to COVID-19; Z90.49 Acquired absence of other specified parts of digestive tract; Z90.710 Acquired absence of both cervix and uterus; Z79.890 Hormone replacement therapy
CPT/HCPCS: J0500; J0696

== ENCOUNTER 2020-12-01 08:51 | Day surgery (SDC) | payer MEDICARE, BC ==
[~2020-12-01] VITALS: Ht 167.6 cm; Wt 79.1 kg
[~2020-12-01 08:51] MED LIST changes: +LEVAQUIN 2250 MG/TAB PO
[2020-12-01 09:30] VITALS: BP 134/68; PULSE 51; TEMP 97.1
[2020-12-01 12:05] VITALS: BP 133/61; PULSE 56; TEMP 98.6
[2020-12-01 12:20] VITALS: BP 137/68; PULSE 57
[2020-12-01 12:35] VITALS: BP 133/61; PULSE 57
[2020-12-01 12:50] VITALS: BP 146/69; PULSE 54
--- NOTE | 2020-12-01 13:10 | NUR ---
IV discontinued at this time due to discharge. Catheter tip is intact. Slight redness present, however no swelling or irration noted. IVY Navarro is assisting her while changing. Daughter is downstairs at the cafe. Discharge instructions reviewed and patient verbalized understanding; stated no further questions.
--- NOTE | 2020-12-01 13:40 | NUR ---
Patient escorted to [facility] with IVY Navarro via wheelchair to meet her daughter, who is driving. Patient was transferred into her care at this time.
== END 2020-12-01 13:40 | disposition home or self-care (01) ==
LOC: SDCO 08:51
DX: R19.5 Other fecal abnormalities (principal); K64.1 Second degree hemorrhoids; K57.30 Diverticulosis of large intestine without perforation or abscess without bleeding; K62.5 Hemorrhage of anus and rectum; I10 Essential (primary) hypertension; I48.91 Unspecified atrial fibrillation; E03.9 Hypothyroidism, unspecified; E78.5 Hyperlipidemia, unspecified; G62.9 Polyneuropathy, unspecified; G47.33 Obstructive sleep apnea (adult) (pediatric); F32.9 Major depressive disorder, single episode, unspecified; F41.9 Anxiety disorder, unspecified; Z79.82 Long term (current) use of aspirin; Z79.899 Other long term (current) drug therapy; Z79.01 Long term (current) use of anticoagulants; Z20.822 Contact with and (suspected) exposure to COVID-19; Z79.890 Hormone replacement therapy; Z90.89 Acquired absence of other organs; Z90.49 Acquired absence of other specified parts of digestive tract; Z90.710 Acquired absence of both cervix and uterus
CPT/HCPCS: J2704; J7030

== ENCOUNTER → 2020-12-22 | Outpatient (CLI) | payer MEDICARE, BC | LOC: MC.RAD 12-01 10:45 | DX: Z12.31 Encounter for screening mammogram for malignant neoplasm of breast (principal) ==

== ENCOUNTER 2021-07-23 14:16 | Emergency (ER) | payer MEDICARE, BC ==
[~2021-07-23] VITALS: Ht 167.6 cm; Wt 78.2 kg
[2021-07-23 14:35] VITALS: TEMP 98.8
[2021-07-23 15:01] LABS: BASO % 0.4 % (0.0-2.0); EOS # 0.1 K/mm3 (0.0-0.7); EOS % 1.1 % (0.0-4.0); GRAN # 6.5 K/mm3 (1.4-6.5); GRAN % 72.2 % (42.2-75.2); HEMOGLOBIN 11.5 g/dl (12.5-16.0); LYMPH # 1.5 K/mm3 (1.2-3.4); LYMPH % 16.3 % (20.0-51.0); MEAN CELL VOLUME 89 fl (80.0-100.0); MEAN CORPUSCULAR HEMOGLOBIN 30 pg (27-31); MEAN CORPUSCULAR HGB CONC 33 g/dl (33.0-37.0); MEAN PLATELET VOLUME 9.4 fl (7.4-10.4); MONO # 0.8 K/mm3 (0.1-0.6); MONO % 9.1 % (1.7-9.3); PLATELET COUNT 272 K/mm3 (130-400); RED BLOOD COUNT 3.89 M/mm3 (4.10-5.30); REDCELL DISTRIBUTION WIDTH-CV 14.4 % (11.5-14.5)
[2021-07-23 15:22] LABS: ALANINE AMINOTRANSFERASE 49 U/L (0-55); ALBUMIN 3.5 gm/dL (3.4-4.8); ALKALINE PHOSPHATASE 45 U/L (40-150); ANION GAP 12 mmol/L (7-16); AST,SGOT 81 U/L (5-34); BILIRUBIN,TOTAL 0.7 mg/dL (0.2-1.2); BLOOD UREA NITROGEN 16 mg/dL (10-20); CALCIUM 8.9 mg/dL (8.4-10.2); CARBON DIOXIDE 21 mmol/L (23-31); CHLORIDE 98 mmol/L (98-107); CREATININE, serum 0.86 mg/dL (0.57-1.11); GLUCOSE 100 mg/dL (70-99); LIPASE 37 U/L (8-78); POTASSIUM 3.9 mmol/L (3.5-4.5); SODIUM 131 mmol/L (136-145); TOTAL PROTEIN 7.2 gm/dL (6.2-8.1)
[2021-07-23 15:31] LABS: PH 6 (5-8); SQUAMOUS EPITHELIAL 0-2 /hpf (0-10); URINE APPEARANCE Hazy (CLEAR/HAZY); URINE BACTERIA None Seen /hpf (NONE SEEN); URINE BILIRUBIN Negative (NEGATIVE); URINE BLOOD Negative (NEGATIVE); URINE COLOR Yellow (YELLOW); URINE GLUCOSE Negative (NEGATIVE); URINE KETONE Trace (NEGATIVE); URINE LEUKOCYTE ESTERASE Trace (NEGATIVE); URINE NITRATE Negative (NEGATIVE); URINE PROTEIN(semi-quant) Negative (NEGATIVE); URINE RBC 0-2 /hpf (0-2)
[2021-07-23 15:31] LABS: HEMATOCRIT 34.7 % (37.0-47.0)
[2021-07-23 15:40] LABS: COLLECTION METHOD CATHETER
[2021-07-23 15:42] LABS: TSH w REFLEX 5.609 uIU/mL (0.350-4.940)
[2021-07-23 15:46] LABS: TROPONIN-I < 0.010 ng/mL (0.00-0.033)
[2021-07-23] MEDS ORDERED: CEPHALEXIN500 M1 PO (17:09)
[2021-07-23 17:41] VITALS: BP 186/86; PULSE 60
[2021-07-25] MEDS ORDERED: AMOXICILLIN 50500 MG PO (14:05)
== END 2021-07-23 17:53 | disposition home or self-care (01) ==
LOC: COL.ER 14:16
PROVIDERS: Emergency Medicine
DX: N39.0 Urinary tract infection, site not specified (principal); R11.2 Nausea with vomiting, unspecified; I48.91 Unspecified atrial fibrillation; I10 Essential (primary) hypertension; Z88.1 Allergy status to other antibiotic agents; Z88.2 Allergy status to sulfonamides; Z20.822 Contact with and (suspected) exposure to COVID-19; Z28.310 Unvaccinated for COVID-19; Z79.01 Long term (current) use of anticoagulants
CPT/HCPCS: J2405; J7120

== ENCOUNTER 2022-04-24 09:53 | Inpatient (IN) | payer MEDICARE, BC ==
[~2022-04-24] VITALS: Ht 175.3 cm; Wt 73.9 kg
[~2022-04-24 09:53] MED LIST changes: +AMOXICILLIN 50500 MG PO; +CEPHALEXIN500 M1 PO
[2022-04-24] MEDS ORDERED: LASIX 20MG TABL20 MG PO (10:18)
[2022-04-24] MEDS ORDERED: NEURONTIN100 MG/CAP PO (10:19)
[2022-04-24 11:02] LABS: BASO # 0.1 K/mm3 (0.0-0.2); BASO % 0.4 % (0.0-2.0); EOS % 0.2 % (0.0-4.0); GRAN # 11.2 K/mm3 (1.4-6.5); GRAN % 84.9 % (42.2-75.2); HEMOGLOBIN 11.3 g/dl (12.5-16.0); LYMPH # 0.9 K/mm3 (1.2-3.4); LYMPH % 7.1 % (20.0-51.0); MEAN CELL VOLUME 89 fl (80.0-100.0); MEAN CORPUSCULAR HEMOGLOBIN 29 pg (27-31); MEAN CORPUSCULAR HGB CONC 33 g/dl (33.0-37.0); MEAN PLATELET VOLUME 9.4 fl (7.4-10.4); MONO # 0.8 K/mm3 (0.1-0.6); MONO % 6.3 % (1.7-9.3); PLATELET COUNT 280 K/mm3 (130-400); RED BLOOD COUNT 3.86 M/mm3 (4.10-5.30); REDCELL DISTRIBUTION WIDTH-CV 15.4 % (11.5-14.5)
[2022-04-24 11:03] LABS: HEMATOCRIT 34.4 % (37.0-47.0)
[2022-04-24 11:10] LABS: INR 1.4 (0.8-3.0); PROTHROMBIN TIME 16.4 SECONDS (9.7-12.8)
[2022-04-24 11:21] LABS: ALBUMIN 3.7 gm/dL (3.4-4.8); BILIRUBIN,TOTAL 0.8 mg/dL (0.2-1.2); CALCIUM 8.9 mg/dL (8.4-10.2); CREATININE, serum 0.91 mg/dL (0.57-1.11); POTASSIUM 4.3 mmol/L (3.5-4.5); TOTAL PROTEIN 7.5 gm/dL (6.2-8.1)
[2022-04-24 11:24] LABS: COLLECTION METHOD CATHETER
[2022-04-24 11:35] LABS: PH 7.5 (5.0-8.5); URINE APPEARANCE Hazy (CLEAR/HAZY); URINE BLOOD Negative (NEGATIVE); URINE COLOR Yellow (YELLOW); URINE GLUCOSE Negative (NEGATIVE); URINE KETONE Negative (NEGATIVE); URINE NITRATE Positive (NEGATIVE); URINE PROTEIN(semi-quant) Negative (NEGATIVE)
[2022-04-24 11:40] LABS: AMORPHOUS CRYSTAL Present (NOT PRESENT); SQUAMOUS EPITHELIAL 0-2 /hpf (0-10); URINE BACTERIA Rare /hpf (NONE SEEN)
--- NOTE | 2022-04-24 12:20 | NUR ---
PATIENT IS A&O. VSS ON TELE. PATIENT HAS CARDIAC HX INCLUDING A-FIB & CHF. 02 @ 1L PER NC WITH SATS IN LOW 90'S. PATIENT HAD FENTANYL IN ER FOR PAIN AND REPORTS PAIN IS MANAGED IN RLE AT THIS TIME. RLE IS EXTERNALLY ROTATED AND SL SHORTENED. TEDS TO LLE. SCD'S TO BLE. MCGOVERN TO DD. IV FLUIDS INFUSING VIA PUMP INTO RIGHT HAND IV. NPO TILL ORTHO SEE'S PATIENT. PATIENT TAKES ELIQUIS AND LAST TOOK IT LAST EVENING. HEAD TO TOE ASSESSMENT COMPLETE. DNR STATUS. SON AT BEDSIDE. ORIENTED TO ROOM. CALL LIGHT IN REACH. BED ALARM ON.
--- NOTE | 2022-04-24 13:50 | NUR ---
PATIENT REPOSITIONED AND SEEMS TO BE BREATHING DEEPER. OFFERED PRN CARMEL, FAMILY AGREED, GIVEN.
[2022-04-24 16:20] VITALS: BP 146/59; PULSE 62; TEMP 97.6
[2022-04-24] MEDS ORDERED: SYNTHROID0.125 MG/T PO (17:39)
[2022-04-24 20:10] VITALS: BP 140/58; PULSE 65; TEMP 100.4
--- NOTE | 2022-04-24 21:26 | NUR ---
IVF'S CHANGED TO INT TO RT HAND. FLUSHES WELL. NO REDNESS OR SWELLING.
--- NOTE | 2022-04-24 21:30 | NUR ---
Patient alert with bouts of confusion, head to toe assessment done, see shift assessment, reports pain to left hip, oxycodone given, SCD's and YUMIKO's on, denies further needs, call light and personal items within reach, will continue to monitor.
[2022-04-25] VITALS (7 sets, daily range): BP systolic 122–147; BP diastolic 53–62; PULSE 56–64; TEMP 98.2–99.9
--- NOTE | 2022-04-25 06:34 | NUR ---
Patient had an uneventful night, requested for a pain pill, oxycodone given, will report off to dayshift nurse.
--- NOTE | 2022-04-25 07:00 | NUR ---
Received a call from Chidi Vasquez that patient's schedule for surgery will be tomorrow at 1130 for right hemiarthroplasty, NPO postmidnight.
--- NOTE | 2022-04-25 07:15 | NUR ---
Bedside report received from the night nurse, IVY Almonte
--- NOTE | 2022-04-25 08:54 | NUR ---
Patient laying in bed alert and oriented. Patient had pain medication earlier this am and states pain is manageable. INT to right hand intact. Patient has small size of ecchymosis on right elbow from previous fall. ICE pack applied to right hip. Pulses papable. SCD on and milligan draining mack urine in the bag. Patient has no needs at this time. Bed alarm on for safety measures. Patient remains on high fall risk. Call spencer within reach.
--- NOTE | 2022-04-25 10:11 | NUR ---
Initial visit; Patient thanked Physiotherapy Aide for offering prayer and God's blessings for healing. Physiotherapy Aide thanked patient for choosing [facility].
[2022-04-25 10:24] LABS: BASO # 0.1 K/mm3 (0.0-0.2); BASO % 0.8 % (0.0-2.0); EOS # 0.1 K/mm3 (0.0-0.7); EOS % 1.4 % (0.0-4.0); GRAN # 8.3 K/mm3 (1.4-6.5); GRAN % 82.2 % (42.2-75.2); LYMPH # 0.8 K/mm3 (1.2-3.4); LYMPH % 7.8 % (20.0-51.0); MEAN CELL VOLUME 86 fl (80.0-100.0); MEAN CORPUSCULAR HEMOGLOBIN 30 pg (27-31); MEAN CORPUSCULAR HGB CONC 35 g/dl (33.0-37.0); MEAN PLATELET VOLUME 9.2 fl (7.4-10.4); MONO # 0.7 K/mm3 (0.1-0.6); MONO % 7.1 % (1.7-9.3); PLATELET COUNT 274 K/mm3 (130-400); RED BLOOD COUNT 3.36 M/mm3 (4.10-5.30)
[2022-04-25 10:25] LABS: HEMATOCRIT 28.8 % (37.0-47.0)
[2022-04-25 10:35] LABS: CALCIUM 8.3 mg/dL (8.4-10.2); CREATININE, serum 0.82 mg/dL (0.57-1.11); POTASSIUM 3.6 mmol/L (3.5-4.5)
--- NOTE | 2022-04-25 12:32 | NUR ---
Patient c/o of severe pain at right hip and rated pain level 6/10. Roxicodone administered at 1218. Ice pack applied to the area affected area.
--- NOTE | 2022-04-25 13:06 | NUR ---
Distribution Engineer met with patient to discuss discharge planning. Patient lives alone in [place], [place] and advised she has a lot of support from her family and neighbors. Patient sees Dr. Rubio for primary care. Patient advised she uses a walker and also has a medical alert button she wears. Patient stated she is mostly independent with ADLS. Patient has hired a local retired nurse that comes to her home once a week to help her bathe and assist with household duties. Patient advised she believes she has established her son, Ankit (ph#[phone]) as DPOA-HC. SW discussed post acute rehab with patient who advised she has been to [facility] in the past and would like to go there again. Patient did not list a second preference at this time so SW encouraged patient to consider other local facilities as a back up preference. SW contacted patient's son, Ankit to review discharge plan. Ankit advised his brother has already contacted [facility] and they hope this is where she can get rehab. SW contacted Carmen at [facility] and faxed referral. Discharge Plan: SNF
--- NOTE | 2022-04-25 16:26 | NUR ---
Nurse attempted to call Vee Tong for pulmonary consult. Unable to reach provider, voice message left with phone number to call the surgical unit.
--- NOTE | 2022-04-25 18:59 | NUR ---
Patient laying in bed watching TV, states "pain is not bad at all". Patient rated pain level 6/10. Ice pack applied to the area. Patient ordered late dinner and awaiting for tray. Patient has no concerns at this time. Call spencer within reach.
--- NOTE | 2022-04-25 20:16 | NUR ---
Patient assessed at this time, head to toe assessment done, see shift assessment, rates her pain at 7/10, scheduled tylenol and oxycodone given, repositioned regularly, SCD's and YUMIKO's on, with milligan catheter draining well, with IV to right hand infusing well, denies further needs, call light and personal items within reach, will continue to monitor.
--- NOTE | 2022-04-25 22:35 | NUR ---
Called Dr. Horowitz for patient requesting to take sleeping pill, received an order for melatonin 3mg HS PRN.
[2022-04-26] VITALS (12 sets, daily range): BP systolic 109–151; BP diastolic 43–80; PULSE 59–70; TEMP 97.5–98.6
--- NOTE | 2022-04-26 06:16 | NUR ---
Patient had an uneventful night, NPO maintained, will report off to dayshift nurse.
--- NOTE | 2022-04-26 06:35 | NUR ---
appears to be dozing, bedside shift report received from IVY Almonte
[2022-04-26 07:00] LABS: BASO # 0.1 K/mm3 (0.0-0.2); BASO % 0.7 % (0.0-2.0); EOS # 0.2 K/mm3 (0.0-0.7); EOS % 2.3 % (0.0-4.0); GRAN % 77.7 % (42.2-75.2); HEMOGLOBIN 10.1 g/dl (12.5-16.0); LYMPH % 9.3 % (20.0-51.0); MEAN CELL VOLUME 88 fl (80.0-100.0); MEAN CORPUSCULAR HEMOGLOBIN 30 pg (27-31); MEAN CORPUSCULAR HGB CONC 34 g/dl (33.0-37.0); MEAN PLATELET VOLUME 9.6 fl (7.4-10.4); MONO # 0.9 K/mm3 (0.1-0.6); MONO % 8.9 % (1.7-9.3); PLATELET COUNT 268 K/mm3 (130-400); RED BLOOD COUNT 3.41 M/mm3 (4.10-5.30); REDCELL DISTRIBUTION WIDTH-CV 15.4 % (11.5-14.5)
[2022-04-26 07:02] LABS: CALCIUM 8.6 mg/dL (8.4-10.2); CREATININE, serum 0.83 mg/dL (0.57-1.11); POTASSIUM 3.7 mmol/L (3.5-4.5)
--- NOTE | 2022-04-26 07:34 | NUR ---
at [address] Navarro, at 0730 Dr Navarro had not returned the call so at this time JONI Will was paged, a nurse at the surgery center returned the call stating the PA was scrubbed in for surgery, gave this nurse a message to have either Dr Navarro or JONI call the son Ankit with an up date that the son feels he has been left "out of the loop", she was given the son's name and phone number
--- NOTE | 2022-04-26 08:30 | NUR ---
continues to rest in bed, states she had difficulty swallowing pills last night, was able to take metoprolol po and amiodorone dissolved in sip of water and taken, will hold other po meds at this time, c/o pain to right hip with movement and medicated with morphine 1mg slow IV, full assessment completed, see interventions for further info, Dr Doe and care team in to see patient, spoke with her son Ankit and informed him I had left message for Dr Navarro to call him, he verbalizes understanding,
--- NOTE | 2022-04-26 09:04 | NUR ---
Carmen with [facility] states they can accept patient to skilled care upon discharge.
--- NOTE | 2022-04-26 10:19 | NUR ---
Dr Paulson in to see patient
--- NOTE | 2022-04-26 11:02 | NUR ---
report called to Lakshmi RN in surgery, to surgery per bed
--- NOTE | 2022-04-26 11:50 | NUR ---
remains in surgery
--- NOTE | 2022-04-26 13:45 | NUR ---
returned to room per bed from PACU, awake and alert but drowsy, IV infusing and placed on pump at 75ml/hr, aquacell dressing to ivc rawls CD&I, ice in place, YUMIKO hose and SCDS on bilateraly, denies sensation to toes and unable to move lower extremities, takes sips of water and tolerates well
--- NOTE | 2022-04-26 14:15 | NUR ---
continues to doze between checks, has sensation to knees but remains unable to move lower extremities
--- NOTE | 2022-04-26 15:23 | NUR ---
Blender Operator faxed clinical updates to Carmen at [facility].
--- NOTE | 2022-04-26 15:30 | NUR ---
has sensation down to feet and is now able to do ankle pumps,
--- NOTE | 2022-04-26 15:43 | NUR ---
radiology in to do xray right hip
--- NOTE | 2022-04-26 16:32 | NUR ---
resting in bed visiting with family at this time, denies pain or needs, offered her something to eat but she declines at this time
--- NOTE | 2022-04-26 17:51 | NUR ---
c/o pain to right hip starting to increase, medicated with percocet 5mg 1 tab, assisted with ordering her supper,
--- NOTE | 2022-04-26 18:54 | NUR ---
bedside shift report given to IVY Bauman
--- NOTE | 2022-04-26 20:47 | NUR ---
PT REPORTS PAIN TO RT LEG, AWARE IT MIGHT BE TOO EARLY, GIVEN TRAMADOL WITH HS MEDS CRUSHED IN APPLESAUCE PER HER REQUEST. HAS AQUACEL DRSG TO RT HIP, ICE PACK REPLACED. HAS FROILAN TO BSD WITH SHARA URINE. IV TO RT HAND, INFUSING WITHOUT REDNESS OR SWELLING. SCDS ON. BED ALARM ON FOR SAFETY.
--- NOTE | 2022-04-26 23:41 | NUR ---
NORCO GIVEN CRUSHED IN APPLESAUCE FOR RT HIP PAIN.
[2022-04-27] VITALS (7 sets, daily range): BP systolic 112–125; BP diastolic 46–53; PULSE 63–70; TEMP 97.9–98.9
--- NOTE | 2022-04-27 05:24 | NUR ---
PT REPORTS PAIN IN RT LEG AND RT ABD, PERCOCET GIVEN.
[2022-04-27 06:53] LABS: MEAN CELL VOLUME 85 fl (80.0-100.0); MEAN CORPUSCULAR HGB CONC 35 g/dl (33.0-37.0); MEAN PLATELET VOLUME 9.7 fl (7.4-10.4); PLATELET COUNT 266 K/mm3 (130-400); RED BLOOD COUNT 3.04 M/mm3 (4.10-5.30); REDCELL DISTRIBUTION WIDTH-CV 14.9 % (11.5-14.5)
[2022-04-27 06:56] LABS: HEMATOCRIT 25.9 % (37.0-47.0); HEMOGLOBIN 9.1 g/dl (12.5-16.0); MEAN CORPUSCULAR HEMOGLOBIN 30 pg (27-31)
[2022-04-27 07:07] LABS: CALCIUM 8.3 mg/dL (8.4-10.2); CREATININE, serum 0.83 mg/dL (0.57-1.11); POTASSIUM 3.6 mmol/L (3.5-4.5)
--- NOTE | 2022-04-27 07:12 | NUR ---
Shift report received from demonstrator knitting RN.
[2022-04-27 07:22] LABS: EOSINOPHIL 4 % (0-4); LYMPHOCYTE 7 % (20.0-51.0); NEUTROPHILS 81 % (42.0-75.2)
[2022-04-27 07:23] LABS: PLATELET ESTIMATE NORMAL (NORMAL)
--- NOTE | 2022-04-27 09:38 | NUR ---
Pt resting supine in bed. Aroused easily from sleep. HOB elvated to approx 45 degrees. IVF infusing to IV site in right hand w/o sx of infiltration. Pt denies pain/discomfort at this time. Denies chest pain or abd. pain. Pt denies additional needs. Call light is in her reach. Bed alarm is on.
--- NOTE | 2022-04-27 10:11 | NUR ---
Pt assisted up to recliner by nurse and PT. Aquacell dressing to right has a small amt of visible drainage through the dressing. Pt reports pain with weight bearing, otherwise denies pain/discomfort. Pt denies other needs. Call light is in her reach. Chair alarm is on.
--- NOTE | 2022-04-27 17:48 | NUR ---
IVF dc'd per order. Pt tolerating PO fluids/foods. No nausea or abd. pain. Pt denies pain or discomfort at this time. Castro patent to drainage. Call light is in her reach. Bed alarm is on
--- NOTE | 2022-04-27 21:34 | NUR ---
PT IN BED. IS ALERT AND ORIENTED X4. HAS INT TO RT HAND, FLUSHES WELL. HAS MCGOVERN TO BSD WITH SHARA URINE. IS ON NO FREE WATER RESTRICTION, HAS SPRITE AT BEDSIDE. RT HIP WITH AQUACEL DRSG D/I. RT ELBOW WITH PURPLE BRUISING. TAKES HS MEDS CRUSHED IN APPLESAUCE PER HER REQUEST, INCLUDING MELATONIN AND PERCOCET. WEARING SCDS.
--- NOTE | 2022-04-28 03:00 | NUR ---
Patient care, medication administration and nursing documentation occurred during a Daylight Savings Time Change.
[2022-04-28 04:06] VITALS: BP 132/49; PULSE 64; TEMP 98.1
--- NOTE | 2022-04-28 04:28 | NUR ---
PT REPORTS PAIN TO NECK AND HEAD. TRAMADOL GIVEN.
[2022-04-28 06:51] LABS: MEAN CELL VOLUME 87 fl (80.0-100.0); MEAN CORPUSCULAR HGB CONC 34 g/dl (33.0-37.0); MEAN PLATELET VOLUME 9.7 fl (7.4-10.4); PLATELET COUNT 257 K/mm3 (130-400); RED BLOOD COUNT 2.79 M/mm3 (4.10-5.30)
[2022-04-28 06:52] LABS: HEMATOCRIT 24.3 % (37.0-47.0); HEMOGLOBIN 8.3 g/dl (12.5-16.0); MEAN CORPUSCULAR HEMOGLOBIN 30 pg (27-31)
[2022-04-28 07:06] LABS: CALCIUM 8.4 mg/dL (8.4-10.2); CREATININE, serum 0.76 mg/dL (0.57-1.11); POTASSIUM 3.6 mmol/L (3.5-4.5)
[2022-04-28 07:51] VITALS: BP 124/57; PULSE 63; TEMP 98.3
[2022-04-28 10:01] LABS: BAND 2 % (0-10); EOSINOPHIL 7 % (0-4); LYMPHOCYTE 13 % (20.0-51.0); NEUTROPHILS 65 % (42.0-75.2)
[2022-04-28 10:04] LABS: TARGET CELLS 1+
[2022-04-28 10:06] LABS: ANISOCYTOSIS 1+; PLATELET ESTIMATE NORMAL (NORMAL)
--- NOTE | 2022-04-28 11:03 | NUR ---
PATIENT ALERT AND ORIENTED X4. VSS. PATIENT HERE FOR RIGHT HIP FRACTURE. PATIENT REPORTS PAIN, UNABLE TO DETERMINE NUMBER, BUT REQUESTS PAIN MEDICATION. AQUACELL TO RIGHT HIP WITH DRAINAGE APPROXIMATELY THE SIZE OF A HALF DOLLAR. MCGOVERN TO DD WITH SHARA OUTPUT. PATIENT ON NO FREE WATER. MORNING MEDS CRUSHED AND MIXED WITH APPLESAUCE. PATIENT RESTING IN BED, CALL LIGHT IN REACH.
[2022-04-28 12:09] VITALS: BP 122/54; PULSE 65; TEMP 98.1
[2022-04-28 15:41] VITALS: BP 124/47; PULSE 66; TEMP 97.8
--- NOTE | 2022-04-28 16:03 | NUR ---
FROILAN MONTES DE OCA. PATIENT ASSISTED TO CHAIR WITH TWO ASSIST. PATIENT TOLERATED. PAIN MEDICATION ADMINISTERED. PATIENT EDUCATED ON IMPORTANCE OF MOVEMENT POST SURGERY. PATIENT REPORTS PAIN 6/10.
[2022-04-28 19:07] LABS: HEMATOCRIT 24.9 % (37.0-47.0); HEMOGLOBIN 8.4 g/dl (12.5-16.0)
[2022-04-28 19:20] LABS: CALCIUM 8.8 mg/dL (8.4-10.2); CREATININE, serum 0.78 mg/dL (0.57-1.11)
[2022-04-28 19:38] VITALS: BP 118/47; PULSE 58; TEMP 98.1
--- NOTE | 2022-04-28 20:50 | NUR ---
PT ASSISTED TO BSC WITH 2 ASSIST/GAIT BELT, TRANSFERS FAIR. VOIDS AND ASSISTED TO BED. SHARA URINE SENT TO LAB. HAS TONI DRSG TO RT HIP WITH POSTERIOR BRUISING OF RT HIP, DRAINAGE NOTED BENEATH AQUACEL. HAS INT TO RT HAND, FLUSHES WELL.
--- NOTE | 2022-04-28 21:32 | NUR ---
HS MEDS GIVEN CRUSHED IN APPLESAUCE, INCLUDING MELATONIN AND PERCOCET FOR HIP PAIN. REMAINS FREE WATER RESTRICTION, SPRITE GIVEN PER PT REQUEST.
[2022-04-28 21:40] LABS: OSMOLALITY-URINE random 559 Osm/kg (50-1200)
[2022-04-28 23:50] VITALS: BP 141/50; PULSE 60; TEMP 98.5
--- NOTE | 2022-04-29 03:25 | NUR ---
PT ASSISTED TO BSC WITH 2 ASSIST/GAIT BELT AND WALKER. VOIDS 200CC SHARA URINE, BACK TO BED.
[2022-04-29 03:37] VITALS: BP 150/62; PULSE 66; TEMP 98.2
--- NOTE | 2022-04-29 03:40 | NUR ---
MEDICATED WITH PERCOCET 1 TAB PO FOR RT HIP PAIN.
--- NOTE | 2022-04-29 05:27 | NUR ---
PT STILL COMPLAINS OF PAIN ALL OVER. TRAMADOL GIVEN WITH SCHEDULED AM MED.
[2022-04-29 06:59] LABS: CALCIUM 8.7 mg/dL (8.4-10.2); CREATININE, serum 0.71 mg/dL (0.57-1.11); POTASSIUM 3.9 mmol/L (3.5-4.5)
[2022-04-29 07:01] LABS: MEAN CELL VOLUME 87 fl (80.0-100.0); MEAN CORPUSCULAR HGB CONC 34 g/dl (33.0-37.0); MEAN PLATELET VOLUME 9.9 fl (7.4-10.4); PLATELET COUNT 284 K/mm3 (130-400); RED BLOOD COUNT 2.79 M/mm3 (4.10-5.30); REDCELL DISTRIBUTION WIDTH-CV 14.8 % (11.5-14.5)
[2022-04-29 07:04] LABS: HEMATOCRIT 24.2 % (37.0-47.0); HEMOGLOBIN 8.2 g/dl (12.5-16.0); MEAN CORPUSCULAR HEMOGLOBIN 29 pg (27-31)
[2022-04-29 07:47] VITALS: BP 136/66; PULSE 80; TEMP 97.6
[2022-04-29 08:01] LABS: BAND 2 % (0-10); EOSINOPHIL 1 % (0-4); LYMPHOCYTE 3 % (20.0-51.0); NEUTROPHILS 87 % (42.0-75.2)
[2022-04-29 08:03] LABS: MICROCYTOSIS 1+; PLATELET ESTIMATE NORMAL (NORMAL)
--- NOTE | 2022-04-29 08:45 | NUR ---
Pt awake and eating breakfast. Morning medications administered per eMAR. Shift assessment completed. VSS. Pt is A&Ox3, pt states she thinks it is "August 11, 1953." Telemetry remains on. INT in R hand remains patent, no edema or redness. Aquacell dressing on R hip remains CDI; replaced per orders. Incision site well approx. YUMIKO hose on ALFREDO. Denies c/o pain at this time. Call light within reach. Fall precautions in place.
[2022-04-29] MEDS ORDERED: MULTAQ400 MG PO (10:16)
[2022-04-29] MEDS ORDERED: ALDACTONE 25MG25 M1 PO (10:16)
[2022-04-29] MEDS ORDERED: PERCOCET 325 MG1 TA3 PO (10:19)
--- NOTE | 2022-04-29 12:46 | NUR ---
Manager Rn collaborated with MD and nursing staff to discuss discharge planning. [facility] has approved this Patient for admission. Patient is medically cleared by physician. SW completed Medicare IM with patient and [facility]. Transportation for Patient to be provided by [facility] at 1300.
[2022-04-29 12:51] VITALS: BP 123/62; PULSE 73; TEMP 98
--- NOTE | 2022-04-29 13:30 | NUR ---
INT in R hand discontinued with catheter tip intact. Pt escorted out of facility via wheelchair by [facility] transportation. Pt envelope given to [facility] transportation.
--- NOTE | 2022-04-29 13:45 | NUR ---
Report given to IVY Kay at [facility]. All questions answered.
== END 2022-04-29 13:30 | DRG 469 ==
LOC: COL.ER 09:53 → SURG 11:38 → EDBEDREQ 11:44 → SURG 21:00
PROVIDERS: Orthopaedic Surgery; Physician Assistant; Student in an Organized Health Care Education/Training Program; ADMIT Internal Medicine
PROC: 0SRR0J9 Replacement of Right Hip Joint, Femoral Surface with Synthetic Substitute, Cemented, Open Approach (ICD-10-PCS; principal; 2022-04-26 11:30)
DX: S72.91XA Unspecified fracture of right femur, initial encounter for closed fracture (principal); J96.01 Acute respiratory failure with hypoxia; E87.1 Hypo-osmolality and hyponatremia; N39.0 Urinary tract infection, site not specified; Z16.12 Extended spectrum beta lactamase (ESBL) resistance; G62.9 Polyneuropathy, unspecified; Z66 Do not resuscitate; E78.5 Hyperlipidemia, unspecified; E03.9 Hypothyroidism, unspecified; F32.A Depression, unspecified; M19.90 Unspecified osteoarthritis, unspecified site; G47.33 Obstructive sleep apnea (adult) (pediatric); I48.0 Paroxysmal atrial fibrillation; D72.829 Elevated white blood cell count, unspecified; Z20.822 Contact with and (suspected) exposure to COVID-19; T46.2X5A Adverse effect of other antidysrhythmic drugs, initial encounter; J84.10 Pulmonary fibrosis, unspecified; B96.20 Unspecified Escherichia coli [E. coli] as the cause of diseases classified elsewhere; D64.9 Anemia, unspecified; W18.39XA Other fall on same level, initial encounter; Z90.710 Acquired absence of both cervix and uterus; Z90.49 Acquired absence of other specified parts of digestive tract; Z79.01 Long term (current) use of anticoagulants; Z79.82 Long term (current) use of aspirin; Z88.5 Allergy status to narcotic agent; Z88.2 Allergy status to sulfonamides; Z88.8 Allergy status to other drugs, medicaments and biological substances; Y93.89 Activity, other specified; Y92.89 Other specified places as the place of occurrence of the external cause; Z79.890 Hormone replacement therapy; Z23 Encounter for immunization
CPT/HCPCS: A4314; A9284; C1776; J0690; J0696; J1940; J2185; J2270; J3010; J7030; J7120

== ENCOUNTER → 2022-05-18 | Outpatient (REF) | payer MEDICARE, BC ==
[~2022-05-18] MED LIST changes: +ALDACTONE 25MG25 M1 PO; +MULTAQ400 MG PO; +PERCOCET 325 MG1 TA3 PO; +SYNTHROID0.125 MG/T PO
[2022-05-18 09:14] LABS: COLLECTION METHOD CLEAN CATCH
[2022-05-18 10:10] LABS: MUCOUS Present (NOT PRESENT); SQUAMOUS EPITHELIAL 0-2 /hpf (0-10); URINE APPEARANCE Clear (CLEAR/HAZY); URINE BACTERIA Many /hpf (NONE SEEN); URINE COLOR Yellow (YELLOW); URINE RBC 0-2 /hpf (0-2)
[2022-05-18 10:11] LABS: PH 5.5 (5.0-8.5); URINE BLOOD Negative (NEGATIVE); URINE GLUCOSE Negative (NEGATIVE); URINE KETONE Negative (NEGATIVE); URINE NITRATE Positive (NEGATIVE); URINE PROTEIN(semi-quant) Negative (NEGATIVE); URINE UROBILINOGEN 0.2 E.U/dL (0.2-1.0)
== END ==
LOC: ZCOL.LAB 09:07
PROVIDERS: Family Medicine
DX: R82.998 Other abnormal findings in urine (principal)